=== PATIENT | female | born 1935 | race Caucasian/White ===

== ENCOUNTER 2017-08-27 16:54 | Observation (INO) ==
[2017-08-27] MEDS ORDERED: Aspirin 81 MG TAB.CHEW PO ONE (17:46)
--- NOTE | 2017-08-27 17:49 | Emergency Department Note ---
Disposition Clinical Impression: Chest pain Qualifiers: Chest pain type: unspecified Qualified Code(s): R07.9 - Chest pain, unspecified Disposition: Admitted As Inpatient Condition: Fair Referrals: Say Eisenberg DO [Primary Care Provider] - Forms: ED Satisfaction Letter Time of Disposition: 20:04 Chest Pain HPI - General Chief Complaint: ED Chest Pain Stated Complaint: Chest pain Time Seen by Provider: 08/27/17 17:19 Source: patient Mode of arrival: private vehicle Limitations: no limitations Vital Signs Reviewed: Yes Nursing Notes Reviewed: Yes - History of Present Illness Pt complaint: chest pain Onset (ago): hour(s) (It is been going on since this morning) Duration: intermittent Onset: during rest Pain Location: substernal Severity: moderate Severity scale (1-10): 0 Quality: tightness Pain Radiation: jaw/teeth Improves with: nothing Worsens with: nothing Associated symptoms: Denies: nausea, diaphoresis, dyspnea, palpitations, leg swelling Treatments prior to arrival chest pain: none - Related Data Home Medications Medication Instructions Recorded Confirmed Aspirin 81 mg PO DAILY 01/15/15 08/27/17 Atorvastatin [Lipitor] 40 mg PO HS 01/15/15 08/27/17 Carvedilol [Coreg] 25 mg PO BID 01/15/15 08/27/17 Cholecalciferol (Vitamin D3) 1,000 unit PO DAILY 01/15/15 08/27/17 [Vitamin D] Esomeprazole Magnesium [Nexium] 40 mg PO DAILY 01/15/15 08/27/17 Losartan [Cozaar] 100 mg PO DAILY 01/15/15 08/27/17 NIFEdipine XL (24 HR) [Procardia 60 mg PO DAILY 01/15/15 08/27/17 XL] Nitroglycerin [Nitrostat] 0.4 mg SL DAILY PRN 01/15/15 08/27/17 Allergies Allergy/AdvReac Type Severity Reaction Status Date / Time Amoxicillin Allergy Rash Verified 08/27/17 16:55 azithromycin Allergy Hives Verified 01/15/15 14:14 [From Zithromax Z-Regulo] Sulfa (Sulfonamide Allergy Hives Verified 01/15/15 14:13 Antibiotics) All systems ED: reviewed and negative except as stated. Constitutional: Denies: fever, chills ENT ED: Denies: ear pain, throat pain, congestion Cardiovascular: Reports: chest pain. Denies: palpitations, dyspnea on exertion , edema Respiratory: Denies: cough, dyspnea Gastrointestinal: Denies: abdominal pain, nausea, vomiting Musculoskeletal: Denies: back pain Integumentary: Denies: rash Neurological: Denies: headache Chest Pain PMH - Past Medical History Medical history: Reports: cancer, hypertension, myocardial infarction Psychiatric history: Reports: no psych history - Social History Smoking Status: Former smoker Alcohol use: Reports: none Drug use: Reports: none Physical Exam - General Limitations: no limitations General appearance: alert, in no apparent distress - Head Head exam: atraumatic, normocephalic, normal inspection - Eye Eye exam: Present: normal appearance, PERRL, EOMI. Absent: scleral icterus, conjunctival injection - ENT ENT exam: normal exam, normal oropharynx, mucous membranes moist, normal external ear exam - Neck Neck exam: Present: normal inspection, full ROM. Absent: tenderness - Chest Chest inspection: Present: normal inspection, symmetric chest wall rise. Absent : tenderness - Respiratory Respiratory exam: Present: normal lung sounds bilaterally. Absent: respiratory distress, wheezes - Cardiovascular Cardiovascular exam: Present: regular rate, normal rhythm, normal heart sounds - Abdominal Exam Abdominal exam: Present: soft, Non-Tender, normal bowel sounds - Extremities Exam Extremities exam: Present: normal inspection. Absent: pedal edema - Neurological Exam Neurological exam: Present: alert, oriented X3 - Psychiatric Psychiatric exam: Present: normal affect, normal mood - Skin Skin exam: Present: warm, dry. Absent: rash Course Course Narrative: Patient presents with complaint of chest discomfort that has been intermittent since this morning. When it comes it lasts for about 5 minutes and then goes away. It is a pressure feeling. It does correlate with some discomfort to the left jaw. There are no other autonomic symptoms with it. She denies having felt bad all over the past few days and is been running around maintaining her normal activity level. She does have history of coronary artery disease and stents however. EKG looks okay. Chest pain labs and been ordered. Disposition will be based on diagnostic results and reevaluation. Patient is not having any chest pain at this time. - Reevaluation(s) Reevaluation #1: Patient had a negative workup here in the department. However her story is concerning for cardiac chest pain. She is to be admitted for serial enzymes. I will speak with the hospitalist and arrange admission. Time: 20:04 - Consultations Consultation #1: Dr. Winn, hospitalist - I discussed the case with the hospitalist. He knows the patient well. He accepted her for admission. Time: 20:04 Vital Signs Temperature 98.7 F 08/27/17 16:57 Pulse Rate 66 08/27/17 16:57 Respiratory Rate 20 08/27/17 16:57 Blood Pressure 186/72 08/27/17 16:57 O2 Sat by Pulse Oximetry 98 08/27/17 16:57 Temperature 98.7 F 08/27/17 16:57 Pulse Rate 72 08/27/17 17:53 Respiratory Rate 16 08/27/17 17:53 Blood Pressure 176/70 08/27/17 17:53 O2 Sat by Pulse Oximetry 97 08/27/17 17:53 Oxygen Delivery Oxygen Delivery Room Air Chest Pain - Medical Records Medical records reviewed: Yes I reviewed the patient's medical records. - Lab Data Lab results reviewed: Yes I reviewed the patient's lab results. Result diagrams: 08/27/17 18:03 08/27/17 18:03 Lab Results 08/27/17 08/27/17 08/27/17 Range/Units 18:03 18:03 18:03 WBC 5.6 (4.3-11.1) K/mcL RBC 4.96 (3.82-4.97) M/mcL Hgb 15.2 (11.5-15.4) g/dL Hct 44.5 (35.3-44.9) % MCV 89.7 (83.0-100.0) fL MCH 30.6 (28.0-33.3) pg MCHC 34.2 (31.6-35.5) g/dL RDW 12.8 (11.5-14.5) % Plt Count 212 (140-400) K/mcL MPV 9.7 (9.4-12.4) fL Immature Gran % 0.2 (0-4) % Seg Neutrophils % 51.2 % Lymphocytes % 38.9 % Monocytes % 7.0 % Eosinophils % 1.4 % Basophils % 1.3 % Neutrophils # 2.8 (1.6-8.9) K/mcL Lymphocytes # 2.2 (0.6-4.6) K/mcL Monocytes # 0.4 (0.0-1.3) K/mcL Eosinophils # 0.1 (0.0-0.6) K/mcL Basophils # 0.1 (0.0-0.2) K/mcL PT 11.4 (9.4-12.1) Seconds INR 1.1 APTT 29.6 (26.0-36.0) Seconds Sodium 140 (136-145) mEq/L Potassium 3.7 (3.5-5.1) mEq/L Chloride 104 (98-107) mEq/L Carbon Dioxide 24 (23-29) mEq/L BUN 15 (8-23) mg/dL Creatinine 1.03 (0.60-1.20) mg/dL Est GFR ( Amer) > 60 (> 60) Est GFR (Non-Af Amer) 51 L (> 60) BUN/Creatinine Ratio 15 (6-26) Glucose 103 (70-105) mg/dL Calculated Osmolality 291 (280-300) Calcium 10.1 (8.6-10.3) mg/dL Troponin I < 0.03 (< 0.04) ng/mL - Radiology Data Radiology results reviewed: Yes I reviewed the patient's radiology results. - EKG Data EKG attestation: Yes I reviewed and interpreted this EKG. EKG results narrative: EKG performed at 1701 p.m. shows sinus rhythm at a rate of 68. Normal axis. Good R-wave progression across corneum. There is some weakness to the baseline but no obvious acute ischemic changes. Intervals are within normal limits. EKG shows normal: sinus rhythm Rate: normal Rhythm: NSR [place]/QRS: normal
[2017-08-27 18:09] LABS: Basophils # 0.1 K/mcL (0.0-0.2); Basophils % 1.3 %; Eosinophils # 0.1 K/mcL (0.0-0.6); Eosinophils % 1.4 %; Hematocrit 44.5 % (35.3-44.9); Hemoglobin 15.2 g/dL (11.5-15.4); Immature Granulocytes % 0.2 % (0-4); Lymphocytes # 2.2 K/mcL (0.6-4.6); Lymphocytes % 38.9 %; Mean Corpuscular HGB Conc 34.2 g/dL (31.6-35.5); Mean Corpuscular Hemoglobin 30.6 pg (28.0-33.3); Mean Corpuscular Volume 89.7 fL (83.0-100.0); Mean Platelet Volume 9.7 fL (9.4-12.4); Monocytes # 0.4 K/mcL (0.0-1.3); Neutrophils # 2.8 K/mcL (1.6-8.9); Platelet Count 212 K/mcL (140-400); Red Blood Count 4.96 M/mcL (3.82-4.97); Red Cell Distribution Width 12.8 % (11.5-14.5); Segmented Neutrophils % 51.2 %
[2017-08-27 18:17] LABS: INR 1.1; Prothrombin Time 11.4 Seconds (9.4-12.1)
[2017-08-27 18:20] LABS: Activated Partial Thrombo Time 29.6 Seconds (26.0-36.0)
[2017-08-27 18:25] LABS: BUN/Creatinine Ratio 15 (6-26); Blood Urea Nitrogen 15 mg/dL (8-23); Calcium 10.1 mg/dL (8.6-10.3); Carbon Dioxide 24 mEq/L (23-29); Chloride 104 mEq/L (98-107); Glucose 103 mg/dL (70-105); Osmolality,Calculated 291 (280-300); Potassium 3.7 mEq/L (3.5-5.1); Sodium 140 mEq/L (136-145); eGFR For African Americans > 60 (> 60); eGFR For Non-African Americans 51 (> 60)
[2017-08-27 18:29] LABS: Troponin I < 0.03 ng/mL (< 0.04)
[2017-08-27] MEDS ORDERED: Naloxone 0.4 MG/ML INJ IVP PRN (22:06)
[2017-08-27] MEDS ORDERED: Nitroglycerin 0.4 MG TAB.SUBL SL PRN (22:06)
[2017-08-27] MEDS ORDERED: Acetaminophen 325 MG TABLET PO PRN (22:06)
[2017-08-28] MEDS ORDERED: Aspirin 81 MG TAB.CHEW PO SCH (09:00)
[2017-08-28] MEDS ORDERED: NIFEdipine XL (24 HR) 30 MG TAB.ER.24 PO SCH (09:00)
[2017-08-28] MEDS ORDERED: Cholecalciferol (D-3) 1,000 UNIT TABLET PO SCH (09:00)
[2017-08-28 10:21] VITALS: BP 122/73
--- NOTE | 2017-08-28 11:44 | Internal Med History&Physical ---
Date of Encounter: 08/28/17 Time of Encounter: 11:10 Assessment and Plan (1) Chest pain Current visit: Yes Status: Acute Doubt myocardial ischemic origin based on history and physical. Repeat cardiac enzymes were ordered through emergency room. Qualifiers: Chest pain type: unspecified Qualified Code(s): R07.9 - Chest pain, unspecified (2) CKD (chronic kidney disease) stage 3, GFR 30-59 ml/min Current visit: Yes Status: Chronic Creatinine stable since 2013. (3) Breast cancer Current visit: No Status: Chronic As per [facility] oncology. Qualifiers: Breast location: unspecified site of breast Estrogen receptor status: unspecified Patient sex: female Laterality: left Qualified Code(s): C50.912 - Malignant neoplasm of unspecified site of left female breast (4) Hypertension Current visit: Yes Status: Chronic We will monitor blood pressure. Qualifiers: Hypertension type: essential hypertension Qualified Code(s): I10 - Essential (primary) hypertension Internal Medicine - H&P: HPI Chief complaint: Chest discomfort Admitted From: Emergency Dept Plans for Post Hospital Care: Home History of present illness: Ms. Beckman is a 82 year old female who states she developed some discomfort in her chest that she describes as a "heavy" sensation approximately 3:30 AM after ambulating to the bathroom. She took 81 mg aspirin and returned to bed. After awakening in the morning she had a few recurrent episodes of similar discomfort. She did not take any additional medication. She attempted to reach her PCP office but was directed by phone recording to go to emergency room or urgent care. She came to emergency room and was evaluated and admitted to [facility] for ongoing care needs. She states she is pain-free at this time. She had a previous similar episode of discomfort several years ago and was given a GI cocktail in emergency room and her symptoms subsided. She has history of hypertension and known ASHD status post CA 2007 followed by a stent placement. She had a previous stent 2001. Her most recent heart catheter was 2015 and did not require intervention. She has not used Nitrostat in many months. She does not get angina or anginal equivalent on maximum activity at home. She denies heart failure DVT or pulmonary embolus. Past Med Surg Social Fam HX - Past Medical History Medical history: cancer, hypertension, myocardial infarction Psychiatric history: no psych history - Past Surgical History Surgical History: cholecystectomy, hysterectomy, knee replacement - Social History Smoking Status: Former smoker Smokeless Tobacco Status: No Alcohol use: none Drug use: none - Family History Mother Adopted: No Age: 66 Living Status: Hx Family Cardiac Disorders: Yes Father Age: 68 Living Status: Hx Family Cancer: Yes (mouth cancer) Internal Medicine - H&P: Meds Aspirin 81 mg PO DAILY 01/15/15 [History] Atorvastatin [Lipitor] 40 mg PO HS 01/15/15 [History] Carvedilol [Coreg] 25 mg PO BID 01/15/15 [History] Cholecalciferol (Vitamin D3) [Vitamin D] 1,000 unit PO DAILY 01/15/15 [History] Esomeprazole Magnesium [Nexium] 40 mg PO DAILY 01/15/15 [History] Losartan [Cozaar] 100 mg PO DAILY 01/15/15 [History] NIFEdipine XL (24 HR) [Procardia XL] 60 mg PO DAILY 01/15/15 [History] Nitroglycerin [Nitrostat] 0.4 mg SL DAILY PRN 01/15/15 [History] 3 Allergy/AdvReac Type Severity Reaction Status Date / Time Amoxicillin Allergy Rash Verified 08/27/17 16:55 azithromycin Allergy Hives Verified 01/15/15 14:14 [From Zithromax Z-Regulo] Sulfa (Sulfonamide Allergy Hives Verified 01/15/15 14:13 Antibiotics) All Systems PM: A 10-system review of systems was performed and is negative for pertinent findings except as documented above in the HPI. Review of systems: Gen.: She states her weight has been stable the past few months Cardiovascular: As per history of present illness Respiratory: She smoked from approximately age [age]. She denies chronic lung disease. GI: She has history of hiatal hernia with GERD. She denies disorders of her liver or exocrine pancreas. She has had cholecystectomy. : She has chronic kidney disease stage III. She has occasional UTIs. She has had hysterectomy. She denies other kidney or bladder disorders. Neurologic: She denies large distribution strokes or seizures. Endocrine: She has history of hyperlipidemia. She denies diabetes or thyroid disease Hematology/oncology: She was diagnosed with left breast cancer 2005 and had a lumpectomy. She had left mastectomy 2013 for recurrent breast cancer. She believes she is cancer free. She denies anemia or other blood disorders or malignancies. Psychiatric: She denies anxiety depression or other mental health issues [place] skeletal: She has had right total knee replacement remotely. She denies others bone joint or muscle disorders. - Constitutional Vitals: Temp Pulse Resp BP Pulse Ox 97.6 F 61 16 122/73 96 08/28/17 10:19 08/28/17 10:19 08/28/17 10:19 08/28/17 10:19 08/28/17 10:19 Exam: Gen.: She is a well-developed well-nourished female sitting in a chair at bedside who appears in no acute distress. She denies any pain at this time. HEENT: Head is atraumatic and normocephalic. Eyes: EOMI. There is no scleral icterus. Mouth: Mucosa is moist. Neck: Supple and nontender. There is no thyromegaly or adenopathy noted. Heart: Regular without murmurs gallops or ectopics Lungs: No wheezes or crackles are heard. Abdomen: Soft and nontender. There are no masses or guarding noted. Exam is limited because she is in a seated position. There is no discomfort on palpation in her epigastric area where she locates the pain that brought her to emergency room. Extremities: She has a well-healed right knee scar from remote TKR. There is no cyanosis edema or clubbing noted. Dorsalis pedis and posttibial pulses are trace to 1+ palpable bilaterally. Neurologic: Mental status: She is talkative and a good historian. Cranial nerves: Smile is symmetric. Forehead wrinkles bilaterally. Tongue protrudes midline. EOMI. Motor: There is no pronator drift. Cerebellar: Finger to nose is intact bilaterally. Skin: Warm and dry Internal Med - H&P Results - Labs CBC & Chem 7: 08/27/17 18:03 08/27/17 18:03 Labs: Cardiac Enzymes 08/28/17 Range/Units 06:20 Troponin I < 0.03 (< 0.04) ng/mL - VTE Documentation of Mechanical Device: Graduated compression elastic hosiery
--- NOTE | 2017-08-28 11:55 | Discharge Summary ---
Date of Encounter: 08/28/17 Time of Encounter: 11:10 - Discharge Diagnosis (1) Chest pain Priority: Primary Status: Resolved Qualifiers: Chest pain type: unspecified Qualified Code(s): R07.9 - Chest pain, unspecified (2) CKD (chronic kidney disease) stage 3, GFR 30-59 ml/min Priority: Secondary Status: Chronic (3) Breast cancer Priority: Secondary Status: Chronic Qualifiers: Breast location: unspecified site of breast Estrogen receptor status: unspecified Patient sex: female Laterality: left Qualified Code(s): C50.912 - Malignant neoplasm of unspecified site of left female breast (4) Hypertension Priority: Secondary Status: Chronic Qualifiers: Hypertension type: essential hypertension Qualified Code(s): I10 - Essential (primary) hypertension Hospital course: Ms. Beckman is a 82 year old female who states she developed some discomfort in her chest that she describes as a "heavy" sensation approximately 3:30 AM after ambulating to the bathroom. She took 81 mg aspirin and returned to bed. After awakening in the morning she had a few recurrent episodes of similar discomfort. She did not take any additional medication. She attempted to reach her PCP office but was directed by phone recording to go to emergency room or urgent care. She came to emergency room and was evaluated and admitted to [facility] for ongoing care needs. Initial orders were written by the emergency room physician. I saw her on August 28 and performed a history physical and discharge. Repeat cardiac enzymes showed no evidence of myocardial damage. When I saw her did not think the pain was likely to be from myocardial ischemic origin. The etiology of the pain was not determined with certainty. She was pain-free when I saw her and wished to be discharged home which I felt was reasonable. She has up-to-date Nitrostat supply available for use. She will continue her present home medications as previously ordered. She will follow with her PCP Dr. Eisenberg within 1 week. - Time Spent with Patient Total time spent providing and/or coordinating discharge services: - Discharge Medications Home Medications: Aspirin 81 mg PO DAILY 01/15/15 [History] Atorvastatin [Lipitor] 40 mg PO HS 01/15/15 [History] Carvedilol [Coreg] 25 mg PO BID 01/15/15 [History] Cholecalciferol (Vitamin D3) [Vitamin D] 1,000 unit PO DAILY 01/15/15 [History] Esomeprazole Magnesium [Nexium] 40 mg PO DAILY 01/15/15 [History] Losartan [Cozaar] 100 mg PO DAILY 01/15/15 [History] NIFEdipine XL (24 HR) [Procardia XL] 60 mg PO DAILY 01/15/15 [History] Nitroglycerin [Nitrostat] 0.4 mg SL DAILY PRN 01/15/15 [History] Allergies/Adverse Reactions: 3 Allergy/AdvReac Type Severity Reaction Status Date / Time Amoxicillin Allergy Rash Verified 08/27/17 16:55 azithromycin Allergy Hives Verified 01/15/15 14:14 [From Zithromax Z-Regulo] Sulfa (Sulfonamide Allergy Hives Verified 01/15/15 14:13 Antibiotics) Date of admission: 08/27/17 20:26 Primary care physician: Say Eisenberg DO - Constitutional Vitals: Temp Pulse Resp BP Pulse Ox 97.6 F 61 16 122/73 96 08/28/17 10:19 08/28/17 10:19 08/28/17 10:19 08/28/17 10:19 08/28/17 10:19 - Patient Status Disposition: Home, Self-Care Condition: Fair Functional capacity at discharge: independent ambulation Overall status at discharge: patient is progressing back to baseline - Discharge Instructions Follow Up With: Say Eisenberg DO [Primary Care Provider] - 1 week - Diet and Activity Activity: resume usual activities as tolerated Diet: advance to your usual diet - VTE Documentation of Mechanical Device: Graduated compression elastic hosiery
--- NOTE | 2017-08-28 19:02 | Electrocardiograph Report ---
[address] [address] Test Date: 2017-08-28 Pat Name: Agnes Beckman Department: 9202 Room: [facility] Gender: F Grants Officer: Angel : 1935 Requested By: Luis Jorgensen Order Number: [id number] Reading MD: Yaquelin Walker Measurements Intervals [place] Rate: 62 P: 50 TX: 155 QRS: 24 QRSD: 90 T: 41 QT: 398 QTc: 402 Interpretive Statements SINUS RHYTHM WITH OCCASIONAL VENTRICULAR PREMATURE COMPLEXES Electronically Signed On 08-28-2017 19:00:12 EDT by Yaquelin Walker
--- NOTE | 2017-08-28 19:30 | Electrocardiograph Report ---
[address] [address] Test Date: 2017-08-27 Pat Name: Agnes Beckman Department: 9201 Room: [facility] Gender: F Customer Experience Consultant: [id number] : 1935 Requested By: Luis Jorgensen Order Number: [id number] Reading MD: Yaquelin Walker Measurements Intervals [place] Rate: 68 P: 41 MS: 158 QRS: 4 QRSD: 90 T: 19 QT: 382 QTc: 399 Interpretive Statements SINUS RHYTHM MINIMAL ST DEPRESSION Electronically Signed On 08-28-2017 19:29:16 EDT by Yaquelin Walker
== END 2017-08-28 12:15 | disposition home or self-care (01) ==
LOC: INPPIK 16:54 → EMEROOPIK 16:54 → INPPIK 21:01
PROVIDERS: ADMIT Internal Medicine; ATTEND Internal Medicine